=== PATIENT | female | born 1930 | race Caucasian/White ===

== ENCOUNTER 2017-02-06 17:32 | Emergency (ER) | payer MEDICARE, BC ==
--- NOTE | ~2017-02-06 | CT98 ---
[facility] A Service of [facility] & [facility] RADIOLOGY TEXT RESULTS PATIENT: ROSE MARIE DIETZ LOCATION: SED : 30 UNIT #: [id number] AGE: [address]: Tae Bolaños MD SEX: F ORDER DR: [id number] [address] [address] [id number] E MR#: [id number] Acc #: [id number] NAME: ROSE MARIE DIETZ. : 1930 SEX: F STUDY DATE/TIME: 02/06/2017 19:12 UNIT: SED ROOM: STUDY DESCRIPTION: CT Lumbar Spine Wo Cont Attending Physician: Tae Bolaños M.D. Ordering Physician: Sweta Salmon M.D. Primary Care Physician: Jose L Gimenez M.D. MEDICAL IMAGING REPORT This report is preliminary unless electronic signature is present. EXAM CT lumbar spine without contrast HISTORY Low back pain for 1 week after fall. Compression fracture on x-ray earlier today. TECHNIQUE This CT exam was performed with one or more of the following radiation dose reduction techniques: Automatic exposure control, adjustment of mA and/or kV according to patient size, and iterative reconstruction. FINDINGS CT lumbar spine without contrast demonstrates a severe compression fracture of the L1 vertebral body, including changes of recent fracture, and resulting in 70% loss of height of the mid L1 vertebral body. There is 9 mm posterior displacement of the posteroinferior margin of the L1 vertebral body into the lumbar central canal, causing moderately severe bony central canal narrowing at L1, greater to the right of midline. Moderately severe right bony outlet foraminal narrowing at L1-2. Moderate right lower lumbar curve. Degenerative disc disease and severe disc space narrowing from L2-3 to L4-5. Minimal anterolisthesis of L4 relative to L3 and L5, measuring approximately 3 mm. Moderate to moderately severe multilevel degenerative facet arthropathy throughout the lumbar spine. At L2-3, there is mild diffuse disc bulging and hypertrophic changes causing mild central canal narrowing and moderate bilateral outlet foraminal narrowing. At L3-4, there is minimal diffuse disc bulging and moderate facet hypertrophy and laminectomy. Moderate bilateral outlet foraminal narrowing. STS. [facility] A Service of [facility] & [facility] RADIOLOGY TEXT RESULTS PATIENT: ROSE MARIE DIETZ LOCATION: [facility] [place] 30 UNIT #: [id number] AGE: [address]: Tae Bolaños MD SEX: F ORDER DR: At L4-5, there is moderately severe diffuse disc bulging and moderate bilateral facet hypertrophy, causing severe central canal narrowing. There is also moderate bilateral outlet foraminal narrowing. At L5-S1, there is minimal diffuse disc bulging, and mild bilateral facet hypertrophy, and laminectomy. IMPRESSION 1. Severe compression fracture of L1 including recent fracture components with 70% loss of the mid L1 vertebral body height. There is 9 mm retropulsion of the posterior margin of the L1 vertebral body into the central canal causing moderately severe central canal narrowing and extending toward the right outlet foramen contributing to severe right outlet foraminal narrowing. 2. No additional recent fracture. 3. Multilevel degenerative and hypertrophic changes as described including moderately severe diffuse disc bulging at L4-5 and severe central canal narrowing. Laminectomies from L3-L5. Dictated by... Ian Wan M.D. THIS IS AN ELECTRONICALLY VERIFIED REPORT Ina Wan M.D. at 02/07/2017 2:20 PM DFL/psc TD: 02/07/2017 04:11 JOB #: [id number] MEDICAL IMAGING REPORT
--- NOTE | ~2017-02-06 | CR181 ---
[facility] A Service of [facility] & [facility] RADIOLOGY TEXT RESULTS PATIENT: ROSE MARIE DIETZ LOCATION: SED : 30 UNIT #: [id number] AGE: [address]: Tae Bolaños MD SEX: F ORDER DR: [id number] [address] [address] [id number] E MR#: [id number] Acc #: [id number] NAME: ROSE MARIE DIETZ. : 1930 SEX: F STUDY DATE/TIME: 02/06/2017 18:05 UNIT: SED ROOM: STUDY DESCRIPTION: CR Lumbar Spine 2 or 3 Views Attending Physician: Tae Bolaños M.D. Ordering Physician: Sweta Salmon M.D. Primary Care Physician: Jose L Gimenez M.D. MEDICAL IMAGING REPORT This report is preliminary unless electronic signature is present. EXAM 3 views lumbar spine DATE 02/06/2017 at 18:05 HISTORY Lower back pain for 1 week. Fell. History of compression fracture. COMPARISON MRI of the lumbar spine 12/19/2016. CT abdomen and pelvis bone windows 12/18/2016. FINDINGS The patient's known L1 compression deformity is again noted. It appears significantly more diminished in height and more sclerotic than on previous CT or MRI, having a near-vertebra plana configuration. There does appear to be bony retropulsion posteriorly into the spinal canal approximately 7 mm. There is approximately 7 mm retrolisthesis of L3 upon L4. Lumbar dextroscoliosis is centered at the L3 level. Multilevel diminished disc height, L2 through L5, with diminished disc height most eccentric to the left of midline, with multilevel marginal osteophyte formation. IMPRESSION 1. The patient's known L1 compression fracture appears to have progressed with more diminished height when compared to the previous MRI and CT from December. It has near-vertebra plana configuration. Bony retropulsion of approximately 7 mm. 2. Retrolisthesis L3 upon L4, not thought to be significantly changed. 3. Lumbar dextroscoliosis and multilevel advanced degenerative disc and endplate changes, similar to prior exams. ST[facility] A Service of [facility] & [facility] RADIOLOGY TEXT RESULTS PATIENT: ROSE MARIE DIETZ LOCATION: [facility] [place] : 30 UNIT #: [id number] AGE: [address]: Tae Bolaños MD SEX: F ORDER DR: Dictated by... Ilene Perez M.D. THIS IS AN ELECTRONICALLY VERIFIED REPORT Ilene Perez M.D. at 02/07/2017 11:57 AM URBANO/italo TD: 02/07/2017 02:17 JOB #: [id number] MEDICAL IMAGING REPORT
[~2017-02-06 17:32] MED LIST: ALPRAZOLAM PO; ANTIVERT PO; ASPIRIN81 M2 PO; CELEXA PO; CELEXA20 MG PO; CHEWABLE ASPIRI81 MG PO; CIPRO PO; CLARITIN10 M3 PO; CRESTOR PO; DURAGESIC1 EACH TD; DURAGESIC25 MCG; DURAGESIC75 MCG EXT; FLAGYL PO; FLOMAX0.4 M1 PO; KCL PO; KEFLEX500 M1 PO; KLONOPIN PO; LAMOTRIGINE PO; LEXAPRO PO; LISINOPRIL PO; LOPRESSOR PO; LORTAB 10/500 T1 TAB PO; MEDI-MECLIZINE25 M1 PO; METOPROLOL TAR25 MG PO; METOPROLOL TART25 MG PO; MOTION SICKNESS25 M4 PO; MULTI-VITAMIN1 EAC1 PO; NORCO 5/325 TAB1 TAB PO; PERCOCET 5-3251 TAB PO; ROBAXIN 750750 M1 PO; RONDEC-DM ORAL30 ML PO; ROXICODONE30 M1 PO; VANTIN200 MG PO; VICODIN 5/500 T1 TAB PO; ZITHROMAX PO; ZOCOR; ZOCOR PO; ZOFRAN PO
== END 2017-02-06 20:57 | disposition home or self-care (01) ==
LOC: SED 17:32
DX: S32.019A Unspecified fracture of first lumbar vertebra, initial encounter for closed fracture (principal); I12.9 Hypertensive chronic kidney disease with stage 1 through stage 4 chronic kidney disease, or unspecified chronic kidney disease; N18.9 Chronic kidney disease, unspecified; Z98.890 Other specified postprocedural states; Z88.0 Allergy status to penicillin; X58.XXXA Exposure to other specified factors, initial encounter; Y92.9 Unspecified place or not applicable
CPT/HCPCS: 72100; 72131; 99284

== ENCOUNTER → 2017-02-21 | Day surgery (SDC) | payer MEDICARE, BC ==
[~2017-02-21] MED LIST changes: +ACETAMINOPHEN PO; +CLARINEX-D 121 EACH PO; +DOCUSATE SODIU100 MG PO; +LAMICTAL PO; +OXYCODONE HCL5 MG PO; +OXYCONTIN30 MG PO
--- NOTE | ~2017-02-21 | OR ---
Unit #: [id number] #: [id number] Patient: ROSE MARIE DIETZ [id number] [address] [id number] O MR#: [id number] NAME: ROSE MARIE DIETZ. ROOM: Date of Procedure: 02/21/2017 Admission Date: 02/21/2017 Surgeon: Mushtaq Johnston M.D. : 1930 Attending Physician: Mushtaq Johnston M.D. Primary Care Physician: Jose L Gimenez M.D. OPERATIVE REPORT PREOPERATIVE DIAGNOSES 1. Back pain. 2. Radiculopathy. 3. Lumbar compression fracture. 4. Degenerative disk disease. POSTOPERATIVE DIAGNOSES 1. Back pain. 2. Radiculopathy. 3. Lumbar compression fracture. 4. Degenerative disk disease. PROCEDURE PERFORMED Lumbar epidural steroid injection with intravenous sedation and fluoroscopic guidance for needle localization. INDICATIONS FOR PROCEDURE The patient is an 87-year-old female with significant worsening mid back pain with some L1 distribution radiculopathy associated with worsening of an L1 compression fracture. This has been treated for about 7 months ago and she did fairly well. She had a repeat fall and further fracture at that level. She is not a kyphoplasty candidate due to significant bony retropulsion. Initial epidural steroid injection resulted in excellent control of the pain for few days. Much of the pain returned, she still has maintained moderate improvement. Based on her pathology, symptomatology, and lack of other treatment options, we are going to proceed with a second injection today and assessed the results following this. DESCRIPTION OF PROCEDURE The patient was placed in a seated position. Standard monitors were applied. 1 mg Versed was given for sedation and anxiolysis, which was adequate. Vital signs remained stable. Sterile prep and drape then of lumbar area was performed. The skin then at the T12-L1 level was localized with 1% lidocaine. An 18-gauge UmBiotead needle was then advanced via loss of resistance technique and fluoroscopic guidance in toward the epidural space. After confirming proper positioning with fluoroscopy and radiographic contrast, 80 mg Depo-Medrol and 2 mL of 0.25% bupivacaine were deposited. The patient tolerated the procedure otherwise well and was discharged to the recovery room in stable condition. Unit #: [id number] #: [id number] Patient: ROSE MARIE DIETZ Dictated by... Gregg Small/richard TD: 02/22/2017 05:22 JOB #: [id number] OPERATIVE REPORT Page 1 of 1 X Mushtaq Johnston MD X PROCEDURE OPERATIVE NOTE
== END | disposition home or self-care (01) ==
LOC: CCSC 11:15
DX: S32.019A Unspecified fracture of first lumbar vertebra, initial encounter for closed fracture (principal); M51.16 Intervertebral disc disorders with radiculopathy, lumbar region; J44.9 Chronic obstructive pulmonary disease, unspecified; I10 Essential (primary) hypertension; Z85.038 Personal history of other malignant neoplasm of large intestine; X58.XXXA Exposure to other specified factors, initial encounter
CPT/HCPCS: J1040; J2250

== ENCOUNTER 2017-04-12 18:12 | Emergency (ER) | payer MEDICARE, BC ==
--- NOTE | ~2017-04-12 | CT98 ---
[facility] A Service of [facility] & [facility] RADIOLOGY TEXT RESULTS PATIENT: ROSE MARIE DIETZ LOCATION: SED : 30 UNIT #: [id number] AGE: [address]: Taz To MD SEX: F ORDER DR: [id number] [address] [address] [id number] E MR#: [id number] Acc #: [id number] NAME: ROSE MARIE DIETZ : 1930 SEX: F STUDY DATE/TIME: 04/12/2017 19:33 UNIT: SED ROOM: STUDY DESCRIPTION: CT Lumbar Spine Wo Cont Attending Physician: Taz To M.D. Ordering Physician: Mansoor Beckford Primary Care Physician: Jose L Gimenez M.D. MEDICAL IMAGING REPORT This report is preliminary unless electronic signature is present. EXAM CT lumbar spine, date is 04/12/2017 HISTORY Fell, weakness falling 5 times in the last two days. Dizzy fracture L1 back pain, pelvic pain, congestion TECHNIQUE This CT exam was performed with one or more of the following radiation dose reduction techniques: automatic exposure control, adjustment of mA and/or kV according to patient size, and iterative reconstruction. CT lumbar spine performed. Bone soft tissue windows reviewed. Sagittal coronal reconstructions performed. Comparison 02/06/2017. FINDINGS Surgical clip along the right hepatic margin. Visualized portions of liver, spleen, pancreas, adrenal glands, kidneys notable for a small perhaps 2 mm nonobstructing calculus mid left kidney. No change. No acute renal findings. Visualized urinary bladder, uterus, adnexal regions unremarkable. No pelvic or retroperitoneal adenopathy. The visualized portions of the stomach, small bowel, colon notable for uncomplicated colonic diverticulosis. Extensive bony demineralization in the spine. Lumbar scoliosis slightly convex to the left in the upper thoracic spine into the right in the lower thoracic spine. Severe L1 compression deformity more pronounced in the anterior central and right paracentral region. Loss of height centrally up to 78%, previously 70%. I believe there has been progression of the severe compression deformity in the anterior two thirds of the vertebral body particularly its central and right paracentral aspect. Acute to subacute fracture planes are evident. There is vacuum disc phenomena [facility]. [facility] A Service of [facility] & [facility] RADIOLOGY TEXT RESULTS PATIENT: ROES MARIE DIETZ LOCATION: [facility] : 30 UNIT #: [id number] AGE: [address]: Taz To MD SEX: F ORDER DR: present. Some air within the compressed L1 vertebral body. Similar appearance on prior examination. I see no bony destructive process. Retropulsion posterior-superior L1 vertebral body by up to about 8 millimeters. No change. Resulting moderate to severe spinal canal narrowing particularly in the central and right paracentral spinal canal. See additional details below. There is minimal and stable grade 1 retrolisthesis of L3 relative to L4 and grade 1 anterolisthesis L4 relative to L5. No other vertebral body compression deformities. Severe intervertebral disc space narrowing L2 hyphen L3-L3 hyphen of oral 4-5 with vacuum disc phenomena. Stable. 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 There is rightward translocation of L4 relative to L5 by approximately 8 mm. No change. Patient appears to be status post prior lumbar orthopedic intervention with bilateral L3 laminotomies and probable left L4 laminotomy and bilateral L5 laminotomies or laminectomies. These changes are stable. Correlate with surgical history. T11 - T12, T12 - L1: No significant disc bulge or herniation. Spinal canal diameter within normal limits. Neural foramina are patent without evidence of exiting nerve impingement. L1 hyphen L2: There is no distinct disc bulge at this level. There is moderate to marked central and right paracentral spinal canal narrowing due to the retropulsion component of the L1 compression deformity. The central spinal canal bony diameter is about 7 mm. Less in the right paracentral region. No change. There is narrowing of the right lateral recess. Severe narrowing right neural foramen. Exiting nerve impingement likely. Moderate left foraminal narrowing. Exiting left nerve irritation is a consideration. L2 - L3: Posterior disc osteophyte formations more pronounced in the right paracentral region. Only mild spinal canal narrowing. Moderate right and left foraminal narrowing. Bilateral exiting nerve irritation is a possibility. L3 - L4: No significant disc bulge or herniation. Spinal canal diameters normal. Moderate to marked bilateral foraminal narrowing. Bilateral exiting nerve irritation is a possibility. L4 - L5: Anterolisthesis as noted. Posterior osteophyte/disc osteophyte formations. Moderate to marked central spinal canal narrowing with narrowing of the bilateral lateral recesses. Bilateral foraminal narrowing. Moderate facet degenerative change. Exiting bilateral L4 nerve irritation or leena impingement is a consideration. Narrowing greater on the left than right overall. L5-S1: Posterior disc bulge. Mild mass effect on thecal sac but no spinal stenosis. [id number] bilateral foraminal narrowing due STS. [facility] A Service of [facility] RADIOLOGY TEXT RESULTS PATIENT: ROSE MARIE DIETZ LOCATION: [facility] [place] : 30 UNIT #: [id number] AGE: [address]: Taz To MD SEX: F ORDER DR: predominately to facet degenerative change. There is disc bulge component extending to the inferior aspect of the right neural foramen contributing to foraminal narrowing and possibly abutting the inferior surface of the exiting right L5 nerve in the lateral aspect of the neural foramen. Correlate with L5 dermatomal symptoms. IMPRESSION 1. Abnormal examination. Please see complete dictation above for full details. In the interval from 02/06/2017 there has been progression of severe compression deformity L1 vertebral body involving predominately the anterior two thirds more pronounced in the central and right paracentral region with loss of height centrally up to about 78% currently. On previous examinations. Central loss of height about 70%. Associated retropulsion of the posterior L1 cortex more pronounced in the central and right paracentral region. No change from prior study. On this causes moderate to severe spinal canal narrowing in the central and right paracentral region with central spinal canal diameter about 7 mm. No change. Marked narrowing of the right lateral recess. Severe narrowing right neural foramen. These findings are also unchanged. Moderate to severe narrowing of the left neural foramen also unchanged. At the flanking intervertebral discs, there is vacuum disc phenomenon which is stable. Small foci of air within the L1 compression deformity also stable. I see no underlying bony destructive process and no findings to increase suspicion for diskitis or osteomyelitis. 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 2. Multilevel degenerative changes elsewhere in the lumbar spine which appears stable compared to January 2017. See complete details in body of report above. Overall the chronic findings elsewhere are probably most pronounced at L4 - L5 where there is a right lateral translocation of L4 on L5 by about 8 mm, degenerative anterolisthesis of L4 on L5 by 1-2 mm, and posterior disc osteophyte complex with facet degenerative changes causing moderate to marked central spinal canal narrowing and narrowing of the bilateral lateral recesses. Moderate to marked bilateral foraminal narrowing with irritation or leena impingement of bilateral exiting L4 nerves a possibility. Please see complete details above. 3. Postoperative changes lumbar spine stable. Stable lumbar scoliosis. 4. No traumatic appearing paraspinal soft tissue abnormality. 5. Nonobstructing left renal calculi, stable. 6. Uncomplicated colonic diverticulosis. Dictated by... Tae Ventura M.D. [facility]. [facility] A Service of [facility] RADIOLOGY TEXT RESULTS PATIENT: ROSE MARIE DIETZ [id number] UNIT #: [id number] AGE: [address]: Taz To MD SEX: F ORDER DR: THIS IS AN ELECTRONICALLY VERIFIED REPORT Tae Ventura M.D. at 04/15/2017 8:19 PM Tom TD: 04/13/2017 00:46 JOB #: [id number] MEDICAL IMAGING REPORT Page 1 of 1
--- NOTE | ~2017-04-12 | CT107 ---
[facility]. [facility] A Service of [facility] RADIOLOGY TEXT RESULTS PATIENT: ROSE MARIE DIETZ LOCATION: SED : 30 UNIT #: [id number] AGE: [address]: Taz To MD SEX: F ORDER DR: [id number] [address] [address] [id number] E MR#: [id number] Acc #: [id number] NAME: ROSE MARIE DIETZ : 1930 SEX: F STUDY DATE/TIME: 04/12/2017 19:39 UNIT: SED ROOM: STUDY DESCRIPTION: CT Pelvis Wo Cont Attending Physician: Taz To M.D. Ordering Physician: Mansoor Beckford Primary Care Physician: Jose L Gimenez M.D. MEDICAL IMAGING REPORT This report is preliminary unless electronic signature is present. EXAM CT pelvis 04/12/2017 HISTORY Weakness falling five times last two days fracture L1 back pain, pelvic pain, congestion. TECHNIQUE This CT exam was performed with one or more of the following radiation dose reduction techniques: automatic control, adjustment of mA and/or kV according to patient size, and iterative reconstruction. FINDINGS CT pelvis performed without administration of oral or intravenous contrast. The visualized small bowel is unremarkable. Distal colonic diverticulosis without evidence of diverticulitis. Urinary bladder, uterus adnexal regions unremarkable for a patient of this age. No fluid collections. Atherosclerotic arterial calcifications. No aneurysm. No definite traumatic body wall soft tissue abnormality. Please see today's dedicated CT lumbar spine for a discussion of lumbar spine findings. The bony ring of pelvis is intact. No fracture. The hip joints show mild degenerative change. No traumatic fracture or malalignment. The visualized proximal femurs are intact. The periarticular soft tissues are unremarkable. IMPRESSION 1. No evidence of pelvic fracture. Bilateral hips show no fracture or traumatic malalignment. Mild degenerative changes in the bilateral hip joints. 2. See dedicated lumbar spine CT for discussion of lumbar spine findings. 3. There is no clear indication of acute traumatic body wall soft tissue abnormality. [facility] A Service of [facility] RADIOLOGY TEXT RESULTS PATIENT: ROSE MARIE DIETZ [place] [facility] [place]IT #: [id number] AGE: [address]: Taz To MD SEX: F ORDER DR: 4. Uncomplicated sigmoid diverticulosis. No acute appearing abnormality within the pelvis. See details above. Dictated by... Tae Ventura M.D. THIS IS AN ELECTRONICALLY VERIFIED REPORT Tae Ventura M.D. at 04/15/2017 8:19 PM CRISPIN/hema TD: 04/13/2017 01:05 JOB #: [id number] MEDICAL IMAGING REPORT Page 1 of 1
--- NOTE | ~2017-04-12 | EKG ---
PATIENT: ROSE MARIE DIETZ UNIT #: [id number] Ventricular Rate: 70 BPM Atrial Rate: 70 BPM P-R Interval: 172 ms QRS Duration: 84 ms Q-T Interval: 430 ms QTC Calculation(Bezet): 464 ms P Ramona: 44 degrees Calculated R Ramona: 5 degrees Calculated T Ramona: 17 degrees Diagnosis Line: Normal sinus rhythm Diagnosis Line: Normal ECG Diagnosis Line: Diagnosis Line: Confirmed by ZAINAB PELAEZ MD ([id number]) on Diagnosis Line: 04/16/2017 1:25:48 PM INTERPRETING MD: LATANYA MANLEY
--- NOTE | ~2017-04-12 | CR63 ---
[facility]. [facility] A Service of [facility] & [facility] RADIOLOGY TEXT RESULTS PATIENT: ROSE MARIE DIETZ LOCATION: SED : 30 UNIT #: [id number] AGE: [address]: Taz To MD SEX: F ORDER DR: [id number] [address] [address] [id number] E MR#: [id number] Acc #: [id number] NAME: ROSE MARIE DIETZ : 1930 SEX: F STUDY DATE/TIME: 04/12/2017 19:45 UNIT: SED ROOM: STUDY DESCRIPTION: CR Chest 2 View Attending Physician: Taz To M.D. Ordering Physician: Mansoor Beckford Primary Care Physician: Jose L Gimenez M.D. MEDICAL IMAGING REPORT This report is preliminary unless electronic signature is present. EXAM 2 views chest 04/12/2017 HISTORY Back pain. Fall. Weakness falling 5 times last 2 days, congestion, back pain, pelvic pain. FINDINGS AP and lateral radiographs of the chest presented. Comparison 05/22/2007. No acute thoracic bony abnormality. There is thoracic scoliosis. Mild cardiac enlargement. Lung volumes moderate. Elevation of the right hemidiaphragm more pronounced than on prior examination. Patchy and linear densities bilateral lung bases right greater than left probably predominately atelectatic in nature. No dense airspace disease, pleural effusion or pneumothorax. No suspicious nodule. Calcified granuloma right midlung zone. No suspicious nodule. Dictated by... Tae Ventura M.D. THIS IS AN ELECTRONICALLY VERIFIED REPORT Tae Ventura M.D. at 04/15/2017 8:19 PM CRISPIN/hema TD: 04/13/2017 00:43 JOB #: [id number] MEDICAL IMAGING REPORT Page 1 of 1
--- NOTE | ~2017-04-12 | CT71 ---
[facility]. [facility] A Service of [facility] RADIOLOGY TEXT RESULTS PATIENT: ROSE MARIE DIETZ LOCATION: SED : 30 UNIT #: [id number] AGE: [address]: Taz To MD SEX: F ORDER DR: [id number] [address] [id number] E MR#: [id number] Acc #: [id number] NAME: ROSE MARIE DIETZ : 1930 SEX: F STUDY DATE/TIME: 04/12/2017 19:24 UNIT: SED ROOM: STUDY DESCRIPTION: CT Head Wo Contrast Attending Physician: Taz To M.D. Ordering Physician: Mansoor Beckford Primary Care Physician: Jose L Gimenez M.D. MEDICAL IMAGING REPORT This report is preliminary unless electronic signature is present. EXAM CT head without contrast, 04/12/2017 HISTORY Fell. Weakness. Falling 5 times in last few days. Dizzy. Fracture. L1 back pain, pelvic pain, congestion TECHNIQUE This CT exam was performed with one or more of the following radiation dose reduction techniques: automatic exposure control, adjustment of mA and/or kV according to patient size, and iterative reconstruction. CT head performed skull base through vertex without intravenous contrast. Comparison 12/18/2016. FINDINGS No intracranial hemorrhage. No indication of acute cortical ischemia. Periventricular deep white matter tract probable sequelae of chronic microvascular ischemia unchanged. Basal ganglia intact. Midline structures nondisplaced. Ventricles, cisterns, sulci show mild generalized enlargement consistent with mild generalized atrophy. No intracranial mass effect or abnormal fluid collection. Cavernous carotid distal vertebral arterial calcifications. 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 No change from studies dating to 2014. Visualized paranasal sinuses mastoid air cells clear. No fracture. No acute appearing extracranial soft tissue abnormality. IMPRESSION 1. No acute abnormalities seen in the brain. If the patient has ongoing neurologic symptoms, consider followup imaging, preferably with MRI if the patient is a candidate. 2. Chronic findings include the following: Mild generalized atrophy, [facility] Service of [facility] RADIOLOGY TEXT RESULTS PATIENT: ROSE MARIE DIETZ LOCATION: [facility] #: [id number] : 30 UNIT #: [id number] AGE: [address]: Taz To MD SEX: F ORDER DR: periventricular deep white matter tract probable sequelae of chronic microvascular ischemia, cavernous carotid and distal vertebral arterial calcifications, bilateral eyeball staphylomas. 3. No fracture Dictated by... aTe Ventura M.D. THIS IS AN ELECTRONICALLY VERIFIED REPORT Tae Ventura M.D. at 04/15/2017 8:19 PM Tom TD: 04/13/2017 00:22 JOB #: [id number] MEDICAL IMAGING REPORT Page 1 of 1
[~2017-04-12 18:12] MED LIST changes: -ACETAMINOPHEN PO; -CLARINEX-D 121 EACH PO; -DOCUSATE SODIU100 MG PO; -LAMICTAL PO; -OXYCODONE HCL5 MG PO; -OXYCONTIN30 MG PO
[2017-04-12 19:13] LABS: URINE APPEARANCE CLEAR; URINE BILIRUBIN NEG (NEG); URINE BLOOD NEG (NEG); URINE COLOR YELLOW; URINE GLUCOSE NEG (NORM); URINE KETONE NEG (NEG); URINE LEUKOCYTE ESTERASE NEG (NEG); URINE NITRATE NEG (NEG); URINE PH 5.5 (5-8); URINE PROTEIN NEG (NEG); URINE UROBILINOGEN 0.2 MG/DL (NORM)
[2017-04-12 19:14] LABS: MICRO INDICATED? NO; URINE SOURCE CATH
[2017-04-12 19:23] LABS: BASOPHIL% 0.7 % (0-2.5); EOSINOPHIL# 0.3 X10e3 (0-0.7); EOSINOPHIL% 5.3 % (0.0-7.0); HEMATOCRIT 37.2 % (35.0-45.0); HEMOGLOBIN 12.5 gm/dL (12.0-16.0); INR 1.1; LYMPHOCYTE# 2.7 X10e3 (1.0-3.5); LYMPHOCYTE% 52.6 % (17.0-45.0); MEAN CELL VOLUME 99.8 FL (83-96); MEAN CORPUSCULAR HEMOGLOBIN 33.4 PG (28-34); MEAN CORPUSCULAR HGB CONC 33.5 g/dL (30-36); MEAN PLATELET VOLUME 7.5 FL (6.5-11.5); MONOCYTE# 0.6 X10e3 (0-1.0); MONOCYTE% 11.5 % (3.0-12.0); NEUTROPHIL# 1.5 X10e3 (1.5-7.1); NEUTROPHIL% 29.9 % (40-75); PLATELET COUNT 220 X10e3 (140-420); PROTHROMBIN TIME (PATIENT) 11.9 SECONDS (9.5-12.4); RED BLOOD COUNT 3.73 X10e (3.90-5.30); WHITE BLOOD COUNT 5.1 X10e3 (4.0-10.5)
[2017-04-12 19:25] LABS: DIFF IND YES
[2017-04-12 19:27] LABS: POC - CKMB 1.9 ng/mL (0.0-7.9)
[2017-04-12 19:28] LABS: POC - TROPONIN <0.05 ng/mL (<=0.05)
[2017-04-12 19:30] LABS: PARTIAL THROMBOPLASTIN TIME 27.3 SECONDS (25.6-38.1)
[2017-04-12 19:32] LABS: ALBUMIN SERUM 3.8 g/dL (3.5-5.0); BILIRUBIN, DIRECT 0.1 mg/dL (0.0-0.2); BILIRUBIN,INDIRECT 0.4 mg/dL (0.0-0.9); BILIRUBIN,TOTAL 0.5 mg/dL (0.2-2.0); GLOM FILT RATE Estimated 50.6 mL/min (>60); POTASSIUM 3.7 mmol/L (3.5-5.1); PROTEIN TOTAL SERUM 7.2 g/dL (6.0-8.3)
[2017-04-12 19:45] LABS: ANISOCYTOSIS SL; PLATELET ESTIMATE NORMAL (NORMAL)
[2017-04-12 20:54] LABS: POC - CKMB 2.1 ng/mL (0.0-7.9); POC - TROPONIN <0.05 ng/mL (<=0.05)
== END 2017-04-13 00:34 | disposition hospice, home (50) ==
LOC: SED 18:12
PROVIDERS: Emergency Medicine
DX: S32.019A Unspecified fracture of first lumbar vertebra, initial encounter for closed fracture (principal); Z86.73 Personal history of transient ischemic attack (TIA), and cerebral infarction without residual deficits; Z88.0 Allergy status to penicillin; Z79.899 Other long term (current) drug therapy; J44.9 Chronic obstructive pulmonary disease, unspecified; W19.XXXA Unspecified fall, initial encounter; Y92.9 Unspecified place or not applicable
CPT/HCPCS: 51701; 70450; 71020; 72131; 72192; 80048; 80076; 81003; 82553; 84484; 85025; 85610; 85730; 93005; 99285; J2270

== ENCOUNTER 2017-04-29 08:36 | Emergency (ER) | payer MEDICARE, BC ==
--- NOTE | ~2017-04-29 | CT71 ---
[facility] A Service [facility] RADIOLOGY TEXT RESULTS PATIENT: ROSE MARIE DIETZ LOCATION: SED : 30 UNIT #: [id number] AGE: [address]: Marty Betancourt MD SEX: F ORDER DR: [id number] [place] [id number] E MR#: [id number] Acc #: [id number] NAME: ROSE MARIE DIETZ : 1930 SEX: F STUDY DATE/TIME: 04/29/2017 9:18 UNIT: SED ROOM: STUDY DESCRIPTION: CT Head Wo Contrast Attending Physician: Marty Betancourt M.D. Ordering Physician: Marty Betancourt M.D. Primary Care Physician: Jose L Gimenez M.D. MEDICAL IMAGING REPORT This report is preliminary unless electronic signature is present. EXAM CT head without contrast INDICATIONS Left headache after falling today. COMPARISON 04/12/2017. TECHNIQUE This CT exam was performed with one or more of the following radiation dose reduction techniques: automatic exposure control, adjustment of mA and/or kV according to patient size, and iterative reconstruction. FINDINGS There is no intracranial hemorrhage. No acute cortical-based infarction, focal mass lesion or hydrocephalus. Stable chronic-appearing white matter changes. Carotid siphon calcifications. Included orbits and paranasal sinuses are unremarkable. The bone windows are unremarkable. IMPRESSION No acute intracranial event. Dictated by... Mitul Alaniz M.D. THIS IS AN ELECTRONICALLY VERIFIED REPORT Mitul Alaniz M.D. at 05/01/2017 7:48 AM ARS/pcl [facility] A Service [facility] RADIOLOGY TEXT RESULTS PATIENT: ROSE MARIE DIETZ LOCATION: SED : 30 UNIT #: [id number] AGE: [address]: Marty Betancourt MD SEX: F ORDER DR: TD: 04/29/2017 13:59 JOB #: [id number] MEDICAL IMAGING REPORT Page 1 of 1
--- NOTE | ~2017-04-29 | CR150 ---
[facility] A Service of [facility] RADIOLOGY TEXT RESULTS PATIENT: ROSE MARIE DIETZ LOCATION: SED : 30 UNIT #: [id number] AGE: [address]: Marty Betancourt MD SEX: F ORDER DR: [id number] [place] [id number] E MR#: [id number] Acc #: [id number] NAME: ROSE MARIE DIETZ : 1930 SEX: F STUDY DATE/TIME: 04/29/2017 8:52 UNIT: SED ROOM: STUDY DESCRIPTION: CR Hip Min 2 Views Lt Attending Physician: Marty Betancourt M.D. Ordering Physician: Marty Betancourt M.D. Primary Care Physician: Jose L Gimenez M.D. MEDICAL IMAGING REPORT This report is preliminary unless electronic signature is present. EXAM Left hip, 2 views COMPARISON October 12, 2016, July 03, 2016, January 28, 2014. INDICTIONS 87-year-old female with left hip pain after falling this morning. 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 There is likely degenerative facet disease as well. Evaluation of the sacrum and iliac wings is limited by overlapping bowel gas and stool. Left hip is anatomically aligned. No evidence of acute fracture. Suture material in the right lower quadrant of the abdomen. IMPRESSION No acute fracture, dislocation or significant degenerative change of the left hip. Dictated by... Clemente Casper M.D. THIS IS AN ELECTRONICALLY VERIFIED REPORT Clemente Casper M.D. at 04/30/2017 10:24 PM DOROTHY/liv TD: 04/29/2017 13:56 JOB #: [id number] MEDICAL IMAGING REPORT [facility] A Service of [facility] RADIOLOGY TEXT RESULTS PATIENT: ROSE MARIE DIETZ LOCATION: SED : 30 UNIT #: [id number] AGE: [address]: Marty Betancourt MD SEX: F ORDER DR: Page 1 of 1
[2017-04-29] MEDS ORDERED: CELEXA20 MG PO (08:38)
[2017-04-29] MEDS ORDERED: CLARINEX-D 121 EACH PO (08:38)
[2017-04-29] MEDS ORDERED: LAMICTAL PO (08:39)
[2017-04-29] MEDS ORDERED: DOCUSATE SODIU100 MG PO (08:39)
[2017-04-29] MEDS ORDERED: METOPROLOL TAR25 MG PO (08:39)
[2017-04-29] MEDS ORDERED: OXYCONTIN30 MG PO (08:40)
[2017-04-29] MEDS ORDERED: OXYCODONE HCL5 MG PO (08:40)
[2017-04-29] MEDS ORDERED: ZOFRAN PO (08:41)
[2017-04-29] MEDS ORDERED: ALPRAZOLAM PO (08:41)
[2017-04-29] MEDS ORDERED: ACETAMINOPHEN PO (08:46)
== END 2017-04-29 10:24 | disposition home or self-care (01) ==
LOC: SED 08:36
DX: S09.90XA Unspecified injury of head, initial encounter (principal); S70.02XA Contusion of left hip, initial encounter; I10 Essential (primary) hypertension; F41.9 Anxiety disorder, unspecified; Z87.891 Personal history of nicotine dependence; Z91.81 History of falling; Z86.73 Personal history of transient ischemic attack (TIA), and cerebral infarction without residual deficits; W01.0XXA Fall on same level from slipping, tripping and stumbling without subsequent striking against object, initial encounter; Y92.129 Unspecified place in nursing home as the place of occurrence of the external cause
CPT/HCPCS: 70450; 73502; 99284

== ENCOUNTER 2017-06-06 15:22 | Emergency (ER) | payer MEDICARE, BC ==
--- NOTE | ~2017-06-06 | CR150 ---
[facility] A Service of [facility] RADIOLOGY TEXT RESULTS PATIENT: ROSE MARIE DIETZ LOCATION: SED : 30 UNIT #: [id number] AGE: [address]: Salazar Keys MD SEX: F ORDER DR: [id number] [place] [id number] E MR#: [id number] Acc #: [id number] NAME: ROSE MARIE DIETZ : 1930 SEX: F STUDY DATE/TIME: 06/06/2017 15:33 UNIT: SED ROOM: STUDY DESCRIPTION: CR Hip Min 2 Views Lt Attending Physician: Salazar Keys M.D. Ordering Physician: Salazar Keys M.D. Primary Care Physician: Jose L Gimenez M.D. MEDICAL IMAGING REPORT This report is preliminary unless electronic signature is present. EXAM Left hip, 2 views. HISTORY Hip pain after a fall today. FINDINGS Two views of the left hip demonstrate normal bone alignment. No fracture, joint space narrowing or dislocation. Degenerative changes in the partly visualized lower lumbar spine. Generalized demineralization. IMPRESSION No acute finding. No fracture. Dictated by... Ian Wan M.D. THIS IS AN ELECTRONICALLY VERIFIED REPORT Ian Wan M.D. at 06/07/2017 11:19 PM GRAY/lexx TD: 06/06/2017 18:15 JOB #: [id number] MEDICAL IMAGING REPORT Page 1 of 1
[~2017-06-06 15:22] MED LIST changes: +ACETAMINOPHEN PO; +CLARINEX-D 121 EACH PO; +DOCUSATE SODIU100 MG PO; +LAMICTAL PO; +OXYCODONE HCL5 MG PO; +OXYCONTIN30 MG PO
== END 2017-06-06 19:29 | disposition home or self-care (01) ==
LOC: SED 15:22
DX: S70.02XA Contusion of left hip, initial encounter (principal); Z88.0 Allergy status to penicillin; W19.XXXA Unspecified fall, initial encounter; Y92.009 Unspecified place in unspecified non-institutional (private) residence as the place of occurrence of the external cause
CPT/HCPCS: 73502; 99283